=== PATIENT | female | born 1965 | race African-American/Black ===

== ENCOUNTER → 2017-11-14 | Outpatient (CLI) | payer OTHER, BC ==
--- NOTE | 2017-11-14 17:03 | RADIOLOGY REPORT (SQ) ---
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 NUMBER OF VIEWS: Three views. TECHNIQUE: AP, lateral and oblique radiographic images acquired of the left foot. LIMITATIONS: None. FINDINGS: Images nonweightbearing. Pes planus deformity. No evidence of fracture or advanced arthr opathy. No foreign body. IMPRESSION: Pes planus. TECHNICAL DOCUMENTATION: JOB ID: [id number] [employer]- All Rights Reserved
== END ==
LOC: OD 16:15
PROVIDERS: ATTEND Podiatrist Foot & Ankle Surgery
DX: Q66.9 Congenital deformity of feet, unspecified (principal)

== ENCOUNTER → 2017-11-21 | Outpatient (CLI) | payer OTHER, BC ==
--- NOTE | 2017-11-26 11:23 | XCELERA REPORT ---
[address] [address] Lower Extremity Arterial Evaluation Name: KATI SCHUSTER Age: 52 yrs Gender: Female : 1965 Patient Status: Outpatient Patient Location: Study Date: 11/21/2017 01:34 PM Procedure: A color flow and duplex scan of the lower extremity arteries was performed bilaterally with velocity and waveform anaylsis. Ankle brachial indicies performed. PPG's performed. Reason For Study: PVD Ordering Physician: AIDEN GARCIA Performed By: Molly Beckwith Measurements and Calculations Right Left INTERIM CONTROLLER PSV 190.5 148.4 cm/sec Prox PFA PSV -90.4 -83.0 cm/sec Prox SFA PSV 87.4 -97.4 cm/sec Mid SFA PSV -67.2 -79.4 cm/sec Dist SFA PSV -61.0 -71.9 cm/sec Prox Pop A PSV 51.1 71.9 cm/sec Dist JOSHUA PSV 76.8 71.9 cm/sec Dist PROCESS LINE OPERATOR PSV 67.7 69.9 cm/sec Ernesto Pedis PSV 60.3 77.0 cm/sec Right Side Arterial Evaluation Normal velocity and triphasic waveforms noted from the Common Femoral artery to the infregeniculate vessels. 0 % stenosis at the Femoral artery. Ankle Brachial index is 1.2. PPG's are normal. Left Side Arterial Evaluation Normal velocity and triphasic waveforms noted from the Common Femoral artery to the infregeniculate vessels. 0 % stenosis at the Femoral artery. Ankle Brachial index is 1.2. PPG's are normal. Interpretation Summary No hemodynamically significant lesions in the bilateral lower extremities, on duplex imaging, at rest. : AIDEN GARCIA > Catracho Alberto
== END ==
LOC: SP 13:30
PROVIDERS: ATTEND Podiatrist Foot & Ankle Surgery
DX: I73.9 Peripheral vascular disease, unspecified (principal)
CPT/HCPCS: 93925